=== PATIENT | female | born 1925 | race Caucasian/White ===

== ENCOUNTER 2016-09-19 04:42 | Inpatient (IN) | payer OTHER, MEDICAID ==
[~2016-09-19] VITALS: Ht 154.9 cm; Wt 44.0 kg
[2016-09-19 04:42] VITALS: BP_SYST 83
--- NOTE | 2016-09-19 04:44 | NUR ---
Pt came in ALS by from [facility]. Pt has been vomitting red blood times three. Facility staff stated she was more altered then normal. Pt was hypotensive at 70/40 per [place] on scene. Medics failed to establish IV and start fluids. Pt appeared lethargic and oriented times 0. Pt is guarding abdomen. Pt is also agitated. Will continue to monitor via library monitor and will continue to monitor. No other injuries or complaints mentioned/noted.
--- NOTE | 2016-09-19 04:45 | NUR ---
# 20 gauge angiocath placed to R forearm. Use of asceptic technique. Opsite placed over site. Blood return noted. Blood for lab drawn from site. Flushed with 10 cc of normal saline. No evidence of infiltration noted. Patient tolerated well.
[2016-09-19] MEDS ORDERED: NS 500 ML IV SCH (04:51)
[2016-09-19] MEDS ORDERED: PANTOPRAZOLE SODIUM 40 MG/VIAL (PROTONIX) IVP ONE (05:00)
[2016-09-19] MEDS ORDERED: ONDANSETRON HCL 4 MG/2 ML VIAL IVP ONE (05:00)
[2016-09-19] MEDS ORDERED: PANTOPRAZOLE SODIUM 40 MG/VIAL (PROTONIX) ONE (05:53)
--- NOTE | 2016-09-19 06:00 | NUR ---
# 16 FR salazar catheter with use of sterile technique. Immediate return of 300 ml gorge urine noted. Urine sample collected and sent to lab. Pt tolerated procedure well. Patient unable to toilet self.
--- NOTE | 2016-09-19 06:00 | NUR ---
Pt attempted to kick, bite, and punch staff when attempting EKG. Unable to capture a clear picture. Dr. Stuart made aware.
--- NOTE | 2016-09-19 06:00 | NUR ---
Stool sample sent to lab.
[2016-09-19 06:10] LABS: HEMATOCRIT 36.6 % (36-48); RED BLOOD CELL COUNT(AUTO) 3.61 MIL/uL (4.2-6.2); WHITE BLOOD COUNT (AUTO) 11.4 K/uL (4.8-10.8)
[2016-09-19 06:11] LABS: MEAN CORPUSCULAR HEMOGLOBIN 33 pg (27-31); MEAN CORPUSCULAR HGB CONC 33 % (32-36); MEAN CORPUSCULAR VOLUME 101 fL (79.0-98.0)
[2016-09-19 06:13] LABS: BASOPHILS % (AUTO) 0.2 % (0.0-2.0); EOSINOPHILS % (AUTO) 7.5 % (0.0-4.0); LYMPHOCYTES % (AUTO) 4.7 % (20.5-51.5); MONOCYTES % (AUTO) 8.2 % (1.7-9.3); NEUTROPHILS # (AUTO) 9.1 K/uL (1.8-7.7); NEUTROPHILS % (AUTO) 79.4 % (40.0-70.0); PLATELET COUNT (AUTO) 186 K/uL (130-430); RED CELL DISTRIBUTION WIDTH 13.1 % (9.0-15.0)
[2016-09-19 06:14] LABS: EOSINOPHILS # (AUTO) 0.9 K/uL (0.0-0.4); LYMPHOCYTES # (AUTO) 0.5 K/uL (1.0-5.5); MONOCYTES # (AUTO) 0.9 K/uL (0.0-1.0)
[2016-09-19 06:19] LABS: CALCIUM 8.1 mg/dL (8.4-11.0); CHLORIDE 114 mmol/L (98-107); CREATININE 1.32 mg/dL (0.55-1.30); GLUCOSE 134 mg/dL (70-99); POTASSIUM 5.4 mmol/L (3.5-5.1); PROTHROMBIN TIME 10.9 SECS (9.5-12.5); SODIUM SERUM 140 mmol/L (136-145); UREA NITROGEN, BLOOD 76 mg/dL (8-21)
[2016-09-19 06:25] LABS: ALANINE AMINOTRANSFERASE 25 U/L (12-78); ALBUMIN 2.4 g/dL (3.4-4.8); ASPARTATE AMINOTRANSFERASE 23 U/L (10-37); TOTAL BILIRUBIN 0.2 mg/dL (0.0-1.0)
[2016-09-19 06:33] LABS: ANION GAP < 3 (5-15)
[2016-09-19 06:56] LABS: BILIRUBIN,URINE NEGATIVE (NEGATIVE); CLARITY/URINE CLOUDY (CLEAR); COLOR,URINE YELLOW (YELLOW); GLUCOSE,URINE NEGATIVE (NEGATIVE); KETONES,URINE TRACE (NEGATIVE); LEUKOCYTE ESTERASE ,URINE 3+ (NEGATIVE); NITRITE, URINE POSITIVE (NEGATIVE); PROTEIN URINE TRACE (NEGATIVE)
[2016-09-19 07:00] LABS: BLOOD, URINE TRACE (NEGATIVE)
[2016-09-19] MEDS ORDERED: NACL 0.9% 1,000 ML IV ONE (07:02)
[2016-09-19 07:06] LABS: BACTERIA,URINE MODERATE /HPF (None Seen); MUCUS,URINE 1+ /LPF (None Seen); WBC,URINE 50-80 /HPF (0-3)
[2016-09-19] MEDS ORDERED: MEMA7CAP GT (07:07)
[2016-09-19] MEDS ORDERED: OMEP20CA10 GT (07:12)
[2016-09-19] MEDS ORDERED: PERM60CR4 TP (07:14)
[2016-09-19] MEDS ORDERED: CLOP75TA2 GT (07:14)
[2016-09-19] MEDS ORDERED: ONDANSETRON HCL 4 MG/2 ML VIAL IVP PRN (07:15)
[2016-09-19] MEDS ORDERED: cefTRIAXone 1 GM IVPB PREMIX 50 ML IV ONE (07:15)
[2016-09-19] MEDS ORDERED: TRIA80OI TP (07:19)
[2016-09-19] MEDS ORDERED: TYLL650 GT (07:20)
[2016-09-19] MEDS ORDERED: ARTT OP (07:21)
[2016-09-19] MEDS ORDERED: CAT.1 GT (07:22)
[2016-09-19] MEDS ORDERED: HYDR-2470 GT (07:23)
[2016-09-19] MEDS ORDERED: LACT10SO66 GT (07:25)
[2016-09-19] MEDS ORDERED: LEVO25TA7 GT (07:26)
[2016-09-19] MEDS ORDERED: TERB250T35 GT (07:26)
[2016-09-19] MEDS ORDERED: SSNOVOLOG SUBCUT (07:29)
--- NOTE | 2016-09-19 07:40 | NUR ---
Patient will be admitted to care of Dr. Ramirez. Admitted to Tele unit. Will go to room 113A. Belongings list completed. Summary report printed. Report given to Myesha by Dustin MORALES.
--- NOTE | 2016-09-19 07:40 | NUR ---
Transfer to 113a via ACLS protocol. Licensed nurse present. IV present no signs or symptoms of infiltration.
--- NOTE | 2016-09-19 07:45 | NUR ---
ADMISSION NOTE Received patient from ER via gurney. Patient admitted with diagnosis of GI Bleed. Patient is awake, alert, oriented X 1. Patient oriented to hospital room, call light, toileting, pain management and safety-teach back not done-pt refusing to open her eyes & pulling blanket over her hSide rails up x3, bed alarm on and room across from nursing staion for safety. Personal belongings checked and Belongings List documented. Call light within reach.
[2016-09-19 07:55] VITALS: BP_SYST 115
[2016-09-19] MEDS ORDERED: NS 500 ML IV ONE (08:00)
[2016-09-19] MEDS: PANTOPRAZOLE SODIUM 40 MG in NS 50 ML IV SCH ×4 (09:54→22:57)
[2016-09-19] MEDS: NACL 0.9% 1,000 ML IV SCH ×2 (09:55→18:51)
--- NOTE | 2016-09-19 10:00 | NUR ---
ROUNDS/MEDS Pt more awake now, still refused to open her eyes or mouth for assessment. Protonix drip & IVF both now infusing well to RFA at ordered rates with no s/s inflammation to site. Noted pt very feisty when repositioned in bed and she attempted to scratch this nurse. HOB elevated for aspiration precautions. Skin and safety precautions in place.
--- NOTE | 2016-09-19 11:16 | NUR ---
ROUNDS/MD Pt lying in bed with no s/s resp distress, no sign of pain. Noted pt itchy-Dr. Ramirez here and informed-he ordered Benadryl-will give to pt. Dr. Ramirez here, plan of care reviewed. All precautions remain in place.
--- NOTE | 2016-09-19 11:47 | NUR ---
Consult was called Rg: MARYANN Ellison spoke with Esthela From Dr Maite turk .
[2016-09-19 12:27] VITALS: BP_SYST 132
[2016-09-19] MEDS: DIPHENHYDRAMINE INJ 50 MG/ML VIAL IVP PRN ×2 (12:28→18:55)
[2016-09-19 13:40] LABS: HEMATOCRIT 32.9 % (36-48); HEMOGLOBIN 11.1 g/dL (12.0-16.0)
--- NOTE | 2016-09-19 14:00 | NUR ---
ROUNDS/PICTURES Pt given bed bath and clean gown and linen. Pictures of pt's rash taken. Pt repositioned with pillow support-pt kicked pillow under heels away-able to move her feet at will. All precautions remain in place.
--- NOTE | 2016-09-19 16:27 | NUR ---
ROUNDS Pt resting quietly in bed with no s/s resp distress, s/s pain or discomfort. Pt given warm blanket and repositioned for skin care and comfort. All precautions remain in place.
[2016-09-19 16:28] VITALS: BP_SYST 131
--- NOTE | 2016-09-19 18:56 | NUR ---
PT ITCHY Pt scratchinh constantly, given Benadryl as ordered.
--- NOTE | 2016-09-19 19:05 | NUR ---
CLOSING ROUNDS Pt resting quietly in bed with no s/s resp distress, still scratching her arms at times. Pt seen by for GI consult-he stated he will call pt's son Tristan with plan of care for tomorrow. IVF and Protonix drip infusing well to RFA at ordered rate with no s/s infiltration to site. Aspiration, skin and safety precautions remain in place.
[2016-09-19 20:00] VITALS: BP_SYST 120
--- NOTE | 2016-09-19 20:00 | NUR ---
Opening Note Patient is currently resting in bed. She is awake, however, she is confused. Bed is in low position and is visible from the nurses station. IV is on the RFA 20g running NS@100ml/hr and Protonix @10ml/hr. Cano catheter is to gravity draining clear yellow urine. G-tube is currently clamped patient is NPO. Going for colonoscopy tomorrow. Will obtain telephone consent from the son.
--- NOTE | 2016-09-19 21:40 | NUR ---
Consult called Reason for consultation: Left thumb growth Person who was notified: JESSIE Consulting Physician: : Aung Gomez MD Petroleum Refinery Operator Specialty Orthopedic Petroleum Refinery Operator
[2016-09-19] MEDS: CLOTRIMAZOLE/BETAMET DIPROP 15 GM TUBE TP SCH (21:46)
--- NOTE | 2016-09-19 22:00 | NUR ---
Rounds Patient is in stable condition. However, is very confused. Bed is in low position and is visible from the nurses station.
--- NOTE | 2016-09-20 | NUR ---
Rounds Patient is in stable condition. No signs of distress noted. Call light is within reach.
[2016-09-20 00:57] VITALS: BP_SYST 120
--- NOTE | 2016-09-20 02:00 | NUR ---
Rounds Patient is in stable condition. Call light is within reach.
[2016-09-20 02:12] LABS: HEMATOCRIT 30.2 % (36-48); HEMOGLOBIN 10.3 g/dL (12.0-16.0)
[2016-09-20 04:00] VITALS: BP_SYST 117
--- NOTE | 2016-09-20 04:00 | NUR ---
Rounds Patient is resting in bed. No signs of distress noted.
[2016-09-20] MEDS: PANTOPRAZOLE SODIUM 40 MG in NS 50 ML IV SCH ×3 (04:56→15:00)
[2016-09-20] MEDS: NACL 0.9% 1,000 ML IV SCH ×2 (04:56→10:24)
--- NOTE | 2016-09-20 06:30 | NUR ---
Closing Note Report given to the day shift RN. Patient is in stable condition. IV is on the RFA running NS@100ml/hr and Protonix drip @ 10ml/hr. Cano catheter is draining clear yellow urine. Going for colonoscopy today. Consent is in the chart.
--- NOTE | 2016-09-20 07:43 | NUR ---
Nutrition Update Luis Scale 13 noted. Pt admitted for GI bleed. Diet: NPO BMI: 18.4 kg/m2 RD to follow per nutrition care standards.
[2016-09-20] MEDS ORDERED: SIMETHICONE 40 MG/0.6 ML ML ONE (08:06)
[2016-09-20] MEDS ORDERED: MIDAZOLAM HCL 5 MG/5 ML VIAL ONE (08:06)
[2016-09-20] MEDS ORDERED: MEPERIDINE HCL/PF 100 MG/ML AMP ONE (08:06)
[2016-09-20 08:15] VITALS: BP_SYST 126
--- NOTE | 2016-09-20 08:20 | NUR ---
Routine Patient taken in stable condition to GI Lab for EGD.
[2016-09-20 08:38] LABS: BASOPHILS % (AUTO) 0.4 % (0.0-2.0); EOSINOPHILS % (AUTO) 13.9 % (0.0-4.0); HEMATOCRIT 27.4 % (36-48); HEMOGLOBIN 9.2 g/dL (12.0-16.0); LYMPHOCYTES # (AUTO) 0.6 K/uL (1.0-5.5); LYMPHOCYTES % (AUTO) 8.3 % (20.5-51.5); MEAN CORPUSCULAR HEMOGLOBIN 34 pg (27-31); MEAN CORPUSCULAR HGB CONC 34 % (32-36); MEAN CORPUSCULAR VOLUME 100 fL (79.0-98.0); MONOCYTES # (AUTO) 0.5 K/uL (0.0-1.0); MONOCYTES % (AUTO) 7.6 % (1.7-9.3); NEUTROPHILS # (AUTO) 4.9 K/uL (1.8-7.7); NEUTROPHILS % (AUTO) 69.8 % (40.0-70.0); PLATELET COUNT (AUTO) 145 K/uL (130-430); RED BLOOD CELL COUNT(AUTO) 2.74 MIL/uL (4.2-6.2); RED CELL DISTRIBUTION WIDTH 13.2 % (9.0-15.0)
[2016-09-20 09:13] LABS: ANION GAP 5 (5-15); CALCIUM 8.1 mg/dL (8.4-11.0); CHLORIDE 118 mmol/L (98-107); GLUCOSE 85 mg/dL (70-99); POTASSIUM 4.6 mmol/L (3.5-5.1); SODIUM SERUM 144 mmol/L (136-145); UREA NITROGEN, BLOOD 54 mg/dL (8-21)
[2016-09-20 09:15] LABS: PROTHROMBIN TIME 11.3 SECS (9.5-12.5)
--- NOTE | 2016-09-20 09:45 | NUR ---
Returned to unit from GI Lab. Stable.
--- NOTE | 2016-09-20 10:15 | NUR ---
Dr. Ramirez at bedside. Patient stable.
[2016-09-20] MEDS: CLOTRIMAZOLE/BETAMET DIPROP 15 GM TUBE TP SCH ×2 (10:24→21:06)
[2016-09-20 12:03] VITALS: BP_SYST 123
--- NOTE | 2016-09-20 12:05 | NUR ---
Routine Patient asleep. No acute distress noted at this time.
--- NOTE | 2016-09-20 13:01 | NUR ---
DISCHARGE PLANNING Faxed referral to [phone] for possible weekend discharge. CM made aware and will follow up. Addendum: 09/21/16 at 1255 by Aida Kirk DP Spoke with Pau at [facility] bed available for patient room 101A RN to report [phone] CM made aware. Pau requested to be notified when patient will be discharged. Transportation packet in nurses station.
--- NOTE | 2016-09-20 14:40 | NUR ---
Routine Patient resting in bed with eyes clothes; not asleep - moving head and arms. Patient stable.
--- NOTE | 2016-09-20 14:51 | NUR ---
LUIS SCALE EVALUATION: Patient evaluated for a low Luis score of 13. Patient was awake, alert, confused and received in a Prashant bed with an IsoFlex GABRIELLA mattress (low air-loss therapy initiated). Patient is unable to turn in bed independently. Skin is fair (-); All extremities have excoriations. Recommend reposition patient every 2 hours with pillow support, and off-load pressure areas with pillows for pressure re-distribution. Elevate, off-load and float bilateral heels with pillows. Use moisture barrier cream on buttocks and other moisture susceptible areas QID and as needed for soiling. Perform skin care and monitor skin integrity Q shift. Maintain patient on low air-loss therapy.
[2016-09-20 16:03] VITALS: BP_SYST 153
--- NOTE | 2016-09-20 16:30 | NUR ---
Routine Patient resting comfortably in bed. Patient stable at this time.
--- NOTE | 2016-09-20 18:40 | NUR ---
Routine Patient resting in bed with eyes closed. Patient stable throughout shift.
--- NOTE | 2016-09-20 20:15 | NUR ---
Initial note A/O x 1, no SOB, no chest pain, no grimacing. Skin warm to touch, rashes at chest, arms, and legs. IV at R FA. Clear lung sounds and active bowel sounds. GT in place, site clean. Continued Fibersource @ 50 ml/hr. Residual about 15 ml. Currently on contact isolation for MRSA-nares and C-diff. F/C in place, about 100 ml clear yellow urine in the collecting bag. Call light within reach, will continue to monitor patient.
[2016-09-20 20:30] VITALS: BP_SYST 135
--- NOTE | 2016-09-20 21:00 | NUR ---
Informed Dr. Ramirez regarding C-diff and MRSA-nares positive Dr. Ramirez stated he will see patient tomorrow (09/21/2016), no order given for C-diff but gave order for Bactroban both nares applied BID x 5 days.
--- NOTE | 2016-09-20 22:00 | NUR ---
Called and informed son (Tristan Oliver) regarding MRSA positive on nares
--- NOTE | 2016-09-20 22:10 | NUR ---
Rounds Resting in bed. No SOB, no chest pain, no grimacing. Continued Fibersource @ 50 ml/hr. Residual about 15 ml. Currently on contact isolation for MRSA-nares and C-diff. F/C in place. Bed at lowest position, bed alarm on, call light within reach, will continue to monitor patient.
[2016-09-21] VITALS: BP_SYST 142
--- NOTE | 2016-09-21 00:10 | NUR ---
Rounds Resting/sleeping in bed. No SOB, no chest pain, no grimacing. Continued Fibersource @ 50 ml/hr. Residual about 10ml. Flushed 50 ml water. Currently on contact isolation for MRSA-nares and C-diff. F/C in place. Bed at lowest position, bed alarm on, call light within reach, will continue to monitor patient.
--- NOTE | 2016-09-21 02:20 | NUR ---
Rounds Sleeping in bed. No SOB, no chest pain, no grimacing. Continued Fibersource @ 50 ml/hr. Currently on contact isolation for MRSA-nares and C-diff. F/C in place. Bed at lowest position, bed alarm on, call light within reach, will continue to monitor patient.
[2016-09-21] MEDS: DIPHENHYDRAMINE INJ 50 MG/ML VIAL IVP PRN (02:53)
--- NOTE | 2016-09-21 03:15 | NUR ---
IV RE-INSERTION Complaining of pain to IV site. Restarted on IV #22 at L FA. Successful after [] attempts. Resumed current IVF of [] and regulated @ [] per hour. Will observe for any signs of infiltration. Addendum: 09/21/16 at 0413 by Ash Royal RN IV RE-INSERTION Complaining of pain to IV site when flushing. Restarted on IV #22 at L FA. Successful after 2 attempts. IV Benadryl given for body itchiness. Will observe for any signs of infiltration. DC old IV from R FA, some redness at site, no s/s of infection. Patient tolerated whole procedure well.
[2016-09-21 04:00] VITALS: BP_SYST 143
--- NOTE | 2016-09-21 04:15 | NUR ---
Rounds Resting in bed. No SOB, no chest pain, no grimacing. No itchiness. Continued Fibersource @ 50 ml/hr. Currently on contact isolation for MRSA-nares and C-diff. F/C in place. Bed at lowest position, bed alarm on, call light within reach, will continue to monitor patient.
--- NOTE | 2016-09-21 06:05 | NUR ---
Rounds Resting in bed. No SOB, no chest pain, no grimacing. No itchiness. Continued Fibersource @ 50 ml/hr, flushed with 50 ml water. 15 ml residual noted. Currently on contact isolation for MRSA-nares and C-diff. F/C in place. Bed at lowest position, bed alarm on, call light within reach, will continue to monitor patient.
--- NOTE | 2016-09-21 07:00 | NUR ---
Closing note Awake, resting in bed. No SOB, no chest pain, no grimacing, no itchiness. Continued Fibersource @ 50 ml/hr. Currently on contact isolation for MRSA-nares and C-diff. F/C in place. Bed at lowest position, bed alarm on, call light within reach, will give report to incoming nurse for patient condition and follow up for DVT PPX.
--- NOTE | 2016-09-21 07:43 | NUR ---
PATIENT IS AWAKE, A/OX1, CONFUSED AND AT TIMES COMBATIVE. NPO AT THIS TIME. IV ON LEFT FA, #22, SL. ON CONTACT ISOLATION. CALL LIGHT IN PLACE, BED AT LOWEST POSITION, WILL CONTINUE TO MONITOR.
[2016-09-21 08:27] LABS: BASOPHILS % (AUTO) 0.4 % (0.0-2.0); EOSINOPHILS # (AUTO) 0.5 K/uL (0.0-0.4); EOSINOPHILS % (AUTO) 6.3 % (0.0-4.0); HEMATOCRIT 28.9 % (36-48); HEMOGLOBIN 9.5 g/dL (12.0-16.0); LYMPHOCYTES # (AUTO) 0.6 K/uL (1.0-5.5); LYMPHOCYTES % (AUTO) 7.1 % (20.5-51.5); MEAN CORPUSCULAR HEMOGLOBIN 33 pg (27-31); MEAN CORPUSCULAR HGB CONC 33 % (32-36); MEAN CORPUSCULAR VOLUME 99 fL (79.0-98.0); MONOCYTES # (AUTO) 0.7 K/uL (0.0-1.0); MONOCYTES % (AUTO) 8.2 % (1.7-9.3); NEUTROPHILS # (AUTO) 6.9 K/uL (1.8-7.7); PLATELET COUNT (AUTO) 154 K/uL (130-430); RED BLOOD CELL COUNT(AUTO) 2.91 MIL/uL (4.2-6.2); RED CELL DISTRIBUTION WIDTH 13.1 % (9.0-15.0); WHITE BLOOD COUNT (AUTO) 8.7 K/uL (4.8-10.8)
[2016-09-21] MEDS: PANTOPRAZOLE SODIUM 40 MG/VIAL (PROTONIX) IVP SCH ×2 (09:03→21:59)
[2016-09-21] MEDS: CLOTRIMAZOLE/BETAMET DIPROP 15 GM TUBE TP SCH ×2 (09:07→22:42)
[2016-09-21] MEDS: MUPIROCIN 2% TOPICAL OINTMENT 22 GM TP SCH ×2 (09:07→22:42)
--- NOTE | 2016-09-21 10:00 | NUR ---
PATIENT IS AT REST, TURNED AND REPOSITIONED FOR COMFORT. NO SIGNS OF DISTRESS NOTED.
[2016-09-21 12:00] VITALS: BP_SYST 127
--- NOTE | 2016-09-21 12:05 | NUR ---
PATIENT IS AT REST, TURNED AND REPOSITIONED FOR COMFORT.
--- NOTE | 2016-09-21 14:28 | NUR ---
DR. JOHNSON AND DR. LOMAX CAME AND ASSESSED PATIENT AND GAVE ORDERS.
--- NOTE | 2016-09-21 16:10 | NUR ---
PATIENT'S FAMILY MEMBERS CAME, AND SIGNED CONSENT FOR PROCEDURE, AFTER DR. LOMAX HAS SPOKEN TO THEM ON THE PHONE REGARDING THE PROCEDURE.
--- NOTE | 2016-09-21 18:15 | NUR ---
PATIENT IS RESTING, WITH EYES CLOSED. NO SIGNS OF DISTRESS NOTED.
[2016-09-21 18:22] VITALS: BP_SYST 131
[2016-09-21 19:55] VITALS: BP_SYST 143
--- NOTE | 2016-09-21 20:00 | NUR ---
NOTES; SEEN PT IN BED, EYES CLOSED. AROUSED TO TOUCH. NO ACUTE DISTRESS NOTED. VITAL SIGNS STABLE, AFEBRILE. SKIN RASHES NOTED ALL OVER BODY. WILL APPLY MEDICATED CREAM ORDERED. NO SCRATCHING NOTED. ABDOMEN SOFT NONDISTENDED WITH ACTIVE BOWEL SOUNDS. G-TUBE TO THE ABD WITH ORDERED FIBERSOURCE FEEDING INFUSING WELL AT ORDERED RATE. NO RESIDUAL NOTED. INCONTINENT OF URINE. TOTAL BED BATH GIVEN. DENISE CARE PROVIDED. NO FACIAL GRIMACING OF PAIN NOTED. REPOSITIONED FOR COMFORT. BED LOCKED AND IN LOW POSITION, SIDE RAILS UP X3, CALL LIGHT WITHIN REACH. HEAD OF BED ELEVATED TO PREVENT PT FROM ASPIRATING. WILL CONTINUE TO MONITOR.
--- NOTE | 2016-09-21 22:45 | NUR ---
NOTES; SCHEDULED MEDICATION ADMINISTERED.
[2016-09-22 00:41] VITALS: BP_SYST 138
--- NOTE | 2016-09-22 02:00 | NUR ---
NOTES; RESTING QUIETLY, EASILY AROUSED. PT IS TOLERATING G-TUBE FEEDING WELL. REPOSITIONED FOR COMFORT. HEAD OF BED ELEVATED TO PREVENT PT FROM ASPIRATING. SAFETY MEASURES IN PROGRESS.
--- NOTE | 2016-09-22 04:00 | NUR ---
NOTES; TOTAL BED BATH GIVEN, LINEN CHANGED. G-TUBE SITE CLEANSE WITH NS, PAT DRY. DRESSING APPLIED. REPOSITIONED FOR COMFORT. HEAD OF BED ELEVATED TO PREVENT PT FROM ASPIRATING. SAFETY MEASURES IN PROGRESS.
[2016-09-22 04:43] VITALS: BP_SYST 141
--- NOTE | 2016-09-22 08:00 | NUR ---
OPENING NOTE PATIENT IS LETHARGIC. DOES NOT OPEN EYES TO VERBAL OR LIGHT STIMULI, WITHDRAWS AND MOANS WITH NOXIOUS STIMULI. CALL FROM DR LABOY TO HAVE ITEMS AT BEDSIDE FOR BIOPSY OF LEFT THUMB.
[2016-09-22 08:26] LABS: BASOPHILS % (AUTO) 0.2 % (0.0-2.0); EOSINOPHILS # (AUTO) 0.3 K/uL (0.0-0.4); EOSINOPHILS % (AUTO) 3.2 % (0.0-4.0); HEMATOCRIT 28.3 % (36-48); HEMOGLOBIN 9.7 g/dL (12.0-16.0); LYMPHOCYTES # (AUTO) 0.5 K/uL (1.0-5.5); LYMPHOCYTES % (AUTO) 5.6 % (20.5-51.5); MEAN CORPUSCULAR HEMOGLOBIN 34 pg (27-31); MEAN CORPUSCULAR HGB CONC 34 % (32-36); MEAN CORPUSCULAR VOLUME 100 fL (79.0-98.0); MONOCYTES # (AUTO) 0.5 K/uL (0.0-1.0); MONOCYTES % (AUTO) 6.5 % (1.7-9.3); NEUTROPHILS # (AUTO) 6.8 K/uL (1.8-7.7); NEUTROPHILS % (AUTO) 84.5 % (40.0-70.0); PLATELET COUNT (AUTO) 159 K/uL (130-430); RED BLOOD CELL COUNT(AUTO) 2.84 MIL/uL (4.2-6.2); WHITE BLOOD COUNT (AUTO) 8.1 K/uL (4.8-10.8)
--- NOTE | 2016-09-22 09:00 | NUR ---
DR LABOY CALLED AGAIN TO ENSURE ITEMS WERE AT BEDSIDE, ASKED TO HAVE PTS FINGER SOAKED IN BETADINE AND WILL CALL BACK TO SEE IF IT WAS POSSIBLE
[2016-09-22] MEDS: PANTOPRAZOLE SODIUM 40 MG/VIAL (PROTONIX) IVP SCH ×2 (09:01→20:29)
[2016-09-22] MEDS: MUPIROCIN 2% TOPICAL OINTMENT 22 GM TP SCH ×2 (09:02→20:30)
[2016-09-22] MEDS: CLOTRIMAZOLE/BETAMET DIPROP 15 GM TUBE TP SCH ×2 (09:03→20:30)
--- NOTE | 2016-09-22 10:00 | NUR ---
DR NARDA LAO AGAIN ASKING TO HAVE EMLA AT BEDSIDE TO NUMB PATIENTS THUMB. ASKED THAT PTS THUMB BE SOAKED IN EMLA BEFORE HE ARRIVES.
--- NOTE | 2016-09-22 10:30 | NUR ---
DR LABOY CALLED AGAIN TO HAVE FORMALIN SPECIMEN CONTAINER AT BEDSIDE, SCALPEL, AND LARGE SCISSORS TO EXCISE THE GROWTH FROM LEFT THUMB
--- NOTE | 2016-09-22 11:30 | NUR ---
PROCEDURE DR LABOY PERFORMED BEDSIDE BIOPSY OF PATIENT'S LEFT THUMB, ORDERS FOR PATHOLOGY AND OTHER LABS GIVEN FOR SAMPLE.
[2016-09-22 12:52] VITALS: BP_SYST 128
[2016-09-22 12:53] VITALS: BP_SYST 138
--- NOTE | 2016-09-22 14:27 | NUR ---
KEVIN Ramirez ([phone]), s/w Karlene.
--- NOTE | 2016-09-22 14:49 | NUR ---
PT CLEANED OF INCONTINENCE, NEW FEEDING TUBE AND FEEDING BAG HUNG. PT SEEMS AGITATED IS NOT PULLING TUBES BUT SHE IS RESTLESS AND SCRATCHING HER FACE AND ARMS
[2016-09-22] MEDS: DIPHENHYDRAMINE INJ 50 MG/ML VIAL IVP PRN (15:25)
[2016-09-22] MEDS ORDERED: LIDOCAINE/PRILOCAINE 5 GM CREAM (EMLA) TP ONE (15:30)
--- NOTE | 2016-09-22 15:35 | NUR ---
PATIENT MEDICATED FOR ITCHING W 25MG BENADRYL IVP
--- NOTE | 2016-09-22 15:59 | NUR ---
PATIENT APPEARS MORE CALM. APPEARS TO HAVE LESS ITCHING
--- NOTE | 2016-09-22 16:10 | NUR ---
ID CONSULT: DR VARGAS Consult was called, kalyn luong, esbl, c-diff
[2016-09-22 17:25] VITALS: BP_SYST 136
--- NOTE | 2016-09-22 19:30 | NUR ---
INITIAL NOTES; -Pt is a/ox2, resting in bed. Vital signs 97.8, 20, 100, 156/108, V1qnr=16% r/a. No s/s any pain,sob,n&V, any acute distress noted. Iv sites of rt f/a patent, no s/s any infiltration noted. Abdomen soft & distended, bs present. Delta pedis wakes upon palp. Delta pedis present and no edema noted. Drsg cdi of left thumb. Unable to discuss poc due to aloc,no family is at bedside. Contact isolation. Fall precaution in place. All safety measures in place. Side rail x3,alarmed, bed low position. Call light /win reach. Continue to monitor pt. Addendum: 09/22/16 at 2243 by Yuko Kiran RN ADDITIONAL NOTES; FIBERSOURCE @ 50ML/HR VIA G-TUBE IN PLACE, PATENT, NO RESIDUAL NOTED.
--- NOTE | 2016-09-22 19:51 | NUR ---
PROVIDED PERINEAL -PT IS INCONT OF URINE -PROVIDED PERINEAL CARE AND CLEANED PT. NOW, PT IS CLEANED AND DRY.
--- NOTE | 2016-09-22 22:06 | NUR ---
ROUNDS; Pt is resting in bed. No s/s any pain,sob,n&V, any acute distress noted. Keep HOB greater than 30 degree entire time. Fibersource via G-tube @ 50m/hr. Repositioned and turned pt and q 2 hrs prn. Fall precaution in place. All safety measures in place. Side rail x3,alarmed, bed low position. Call light /win reach. Continue to monitor pt.
--- NOTE | 2016-09-23 00:16 | NUR ---
ROUNDS; Pt is resting in bed. Vital signs stable. No s/s any pain,sob,n&V, any acute distress noted. Keep HOB greater than 30 degree entire time. Fibersource via G-tube @ 50m/hr. Repositioned and turned pt and q 2 hrs prn. Fall precaution in place. All safety measures in place. Side rail x3,alarmed, bed low position. Call light /win reach. Continue to monitor pt.
[2016-09-23 00:22] VITALS: BP_SYST 157
--- NOTE | 2016-09-23 03:51 | NUR ---
ROUNDS;INCONTINENT OF URINE -Provided perineal care and cleaned pt, now, pt is cleaned and dry. No s/s any pain,sob,n&V, any acute distress noted. Keep HOB greater than 30 degree entire time. Fibersource via G-tube @ 50m/hr. Repositioned and turned pt and q 2 hrs prn. Fall precaution in place. All safety measures in place. Side rail x3,alarmed, bed low position. Call light /win reach. Continue to monitor pt.
[2016-09-23 04:46] VITALS: BP_SYST 136
--- NOTE | 2016-09-23 05:47 | NUR ---
ROUNDS; -Pt is resting. No s/s any pain,sob,n&V, any acute distress noted. Keep HOB greater than 30 degree entire time. Fibersource via G-tube @ 50m/hr. Fall precaution in place. All safety measures in place. Side rail x3,alarmed, bed low position. Call light /win reach. Continue to monitor pt.
--- NOTE | 2016-09-23 06:45 | NUR ---
CLOSING NOTES; -Pt is resting in bed. No s/s any pain,sob,n&V, any acute distress noted. Fibersource @ 50ml/hr. Keep HOB greater than 30 degree entire shift. Iv sites of rt f/a patent, no s/s any infiltration noted. Fall precaution in place. All safety measures in place. Side rail x3,alarmed, bed low position. Call light /win reach. Will endorse to oncoming nurse to continue care.
[2016-09-23 08:00] VITALS: BP_SYST 107
--- NOTE | 2016-09-23 08:00 | NUR ---
OPENING NOTE CALL FROM DR LOMAX ASKING TO HAVE BANDAGE REMOVED FROM THUMB AND PHOTOS PLACED IN CHART. MD STATES HE WILL BE IN LATER TO SEE HER. PATIENT IS SLEEPY, REFUSING TO OPEN EYES AND REFUSING TO MOVE LIMBS TO ALLOW FOR VITALS VITALS OBTAINED HOWEVER. PER LAB PATIENT LEFT THUMB HAD MANY MITES AND EGGS. PT HAS LIGHT PINK RASH ON MOST OF BODY AND IS OFTEN SEEN RUBBING HER SKIN OR SCRATCHING HER SCALP.
[2016-09-23] MEDS: MUPIROCIN 2% TOPICAL OINTMENT 22 GM TP SCH ×2 (09:50→21:15)
[2016-09-23] MEDS: CLOTRIMAZOLE/BETAMET DIPROP 15 GM TUBE TP SCH ×2 (09:50→21:16)
[2016-09-23] MEDS: PANTOPRAZOLE SODIUM 40 MG/VIAL (PROTONIX) IVP SCH ×2 (09:54→21:52)
--- NOTE | 2016-09-23 10:37 | NUR ---
DR CHRISTIE IN TO SEE PATIENT.
[2016-09-23] MEDS ORDERED: PERMETHRIN 60 GM TOPICAL CREAM (ELIMITE) TP ONE (10:45)
[2016-09-23] MEDS ORDERED: IVERMECTIN 3 MG TABLET PO ONE (11:00)
[2016-09-23 12:00] VITALS: BP_SYST 140
[2016-09-23] MEDS: cefTRIAXone 1 GM in D5W 50 ML IV SCH (12:29)
--- NOTE | 2016-09-23 12:30 | NUR ---
PT IV NOTED TO BE OCCLUDED. PT REMAINS LETHARGIC, CONFUSED AND SLIGHTLY AGITATED.
[2016-09-23] MEDS: metroNIDAZOLE 500 MG TABLET PO SCH ×2 (14:58→21:15)
[2016-09-23 16:00] VITALS: BP_SYST 134
--- NOTE | 2016-09-23 16:47 | NUR ---
PATIENT ASSESSED. STILL APPEARS MILDLY AGITATED ALTHOUGH SHE HAS NOT SPIT, HIT OR YELLED. PATIENT IS REFUSING A NEW IV START BY SWATTING STAFF HANDS AWAY. WILL PAGE MD FOR POSSIBLE PO ANTIBIOTIC ORDERS.
--- NOTE | 2016-09-23 19:15 | NUR ---
change of shift.pt's initial assessment.pt.presents asphasia;expressive,non verbal will moan,isolation, g-tube present;will attend 2 pt assigned w/constantine;construction management assistant.call light w/in pt's reach.
--- NOTE | 2016-09-23 19:53 | NUR ---
Rounds Received patient lying in bed resting quietly, no s/s of any pain, no acute distress noted. IV site checked intact and patent. call light within reach, bed alarm on. will monitor patient.
[2016-09-23 20:00] VITALS: BP_SYST 140
--- NOTE | 2016-09-23 20:00 | NUR ---
pt.assessed.v/s assessed:values w/in normal limits.pt.presents slight agitation;affect. g-tube assessed;patent,g-tube feed administering.pt.does not articulate speech:pt.will moan.isolation:contact;scabies.ppe:protective gear utilized per nsg.call light w/in pt's reach.
[2016-09-23] MEDS: LACTOBACILLUS RHAMNOSUS GG 1 CAP CAPSULE PO SCH (21:15)
--- NOTE | 2016-09-23 22:00 | NUR ---
pt.assessed.pt.repositioned.no distress/discomfort manifested.g-tube feed infusing. call light w/in pt's reach.
--- NOTE | 2016-09-23 22:34 | NUR ---
PATIENT RESTING: Patient resting quietly. No acute distress noted. call light within reach.
[2016-09-24] VITALS (7 sets, daily range): BP systolic 102–142
--- NOTE | 2016-09-24 | NUR ---
pt.assessed.v/s assessed:values w/in normal limits.pt.repositioned.no distress/discomfort manifested. call light placed w/in pt's reach.
--- NOTE | 2016-09-24 00:20 | NUR ---
PATIENT RESTING: Patient resting quietly. No acute distress noted. call light within reach, bed alarm on.
--- NOTE | 2016-09-24 02:00 | NUR ---
pt.assessed.pt.repositioned.pt.presents quiescent affect;calm,asleep.call light placed w/in pt's reach. no distress/discomfort manifested.
--- NOTE | 2016-09-24 03:15 | NUR ---
PATIENT RESTING: Patient awake. No acute distress noted. call light within reach, bed alarm on.
--- NOTE | 2016-09-24 04:00 | NUR ---
pt.assessed.pt.repositioned.v/s assessed.values w/in normal limits.pt.presents quiescent affect;calm,asleep. no distress/discomfort manifested.call light w/in pt's reach.
--- NOTE | 2016-09-24 04:54 | NUR ---
PATIENT RESTING: Patient resting quietly. No acute distress noted. call light within reach, bed alarm on.
--- NOTE | 2016-09-24 05:00 | NUR ---
GT site care GT site care, changed dressing done.
[2016-09-24] MEDS: metroNIDAZOLE 500 MG TABLET PO SCH ×3 (05:23→22:17)
--- NOTE | 2016-09-24 06:00 | NUR ---
pt.assessed.pt.presents quiescent affect;calm,asleep.pt.repositioned.daniele light w/in pt's reach.
--- NOTE | 2016-09-24 06:32 | NUR ---
Closing notes Patient slept most of the night, no other changes noted on patient current condition.
[2016-09-24 07:17] LABS: BASOPHILS % (AUTO) 0.3 % (0.0-2.0); EOSINOPHILS # (AUTO) 0.8 K/uL (0.0-0.4); HEMATOCRIT 29.8 % (36-48); HEMOGLOBIN 9.9 g/dL (12.0-16.0); LYMPHOCYTES # (AUTO) 0.5 K/uL (1.0-5.5); MEAN CORPUSCULAR HEMOGLOBIN 33 pg (27-31); MEAN CORPUSCULAR HGB CONC 33 % (32-36); MEAN CORPUSCULAR VOLUME 99 fL (79.0-98.0); MONOCYTES # (AUTO) 0.6 K/uL (0.0-1.0); MONOCYTES % (AUTO) 8.6 % (1.7-9.3); NEUTROPHILS # (AUTO) 4.6 K/uL (1.8-7.7); NEUTROPHILS % (AUTO) 70.1 % (40.0-70.0); PLATELET COUNT (AUTO) 184 K/uL (130-430); RED CELL DISTRIBUTION WIDTH 12.8 % (9.0-15.0); WHITE BLOOD COUNT (AUTO) 6.5 K/uL (4.8-10.8)
--- NOTE | 2016-09-24 07:35 | NUR ---
INITIAL NOTE RECEIVED PATIENT FROM BLADE FILER NURSE, PATIENT IS CURRENTLY RESTING IN BED, NO SIGNS OF DISTRESS OR DISCOMFORT, PATIENT IS ALERT AND ORIENTED X 1, ASSESSMENT COMPLETE, PATIENT HAS IV ACCESS ON RIGHT FOREARM CURRENTLY SALINE LOCK, NO SIGNS OF REDNESS NOTED, FLUSHES WELL, PATIENT HAS G-TUBE, SITE IS CLEAN,DRESSING IS DRY AND INTACT, 0 ML OF RESIDUAL, PATIENT'S LEFT THUMB IS CURRENTLY WRAPPED, HEELS ARE FLOATED, HOB ELEVATED, CALL SMITH NEXT TO PATIENT'S HAND, BED IN LOWEST POSITION, THREE SIDE RAILS UP, BED ALARM ON, FALL, ASPIRATION, CONTACT PRECAUTIONS IN PLACE, WILL CONTINUE TO MONITOR PATIENT.
[2016-09-24 07:46] LABS: ANION GAP 3 (5-15); CHLORIDE 110 mmol/L (98-107); CREATININE 1.16 mg/dL (0.55-1.30); GLUCOSE 157 mg/dL (70-99); POTASSIUM 4.3 mmol/L (3.5-5.1); SODIUM SERUM 144 mmol/L (136-145); UREA NITROGEN, BLOOD 46 mg/dL (8-21)
--- NOTE | 2016-09-24 09:35 | NUR ---
MEDICATIONS PATIENT WAS GIVEN MORNING MEDICATIONS, PATIENT TOLERATED WELL, 0ML RESIDUAL FROM FEEDING TUBE, NO OTHER NEEDS AT THIS TIME, WILL CONTINUE TO MONITOR PATIENT, FALL AND ASPIRATION PRECAUTIONS IN PLACE.
[2016-09-24] MEDS: MUPIROCIN 2% TOPICAL OINTMENT 22 GM TP SCH ×2 (09:37→22:16)
[2016-09-24] MEDS: PANTOPRAZOLE SODIUM 40 MG/VIAL (PROTONIX) IVP SCH ×2 (09:37→22:16)
[2016-09-24] MEDS: CLOTRIMAZOLE/BETAMET DIPROP 15 GM TUBE TP SCH ×2 (09:38→22:16)
[2016-09-24] MEDS: LACTOBACILLUS RHAMNOSUS GG 1 CAP CAPSULE PO SCH ×2 (09:38→22:17)
--- NOTE | 2016-09-24 10:59 | NUR ---
RN ROUNDS PATIENT IS CURRENTLY RESTING IN BED WITH EYES CLOSED, NO SIGNS OF DISTRESS, BREATHING IS EVEN AND UNLABORED, CALL SMITH LEFT BY PATIENT'S HAND, BED IN LOWEST POSITION, BED ALARM ON, THREE SIDE RAILS UP, HOB ELEVATED, FALL AND ASPIRATION PRECAUTIONS IN PLACE, WILL CONTINUE TO MONITOR.
[2016-09-24] MEDS: cefTRIAXone 1 GM in D5W 50 ML IV SCH (11:34)
--- NOTE | 2016-09-24 12:45 | NUR ---
RN ROUNDS PATIENT IS STABLE, NO SIGNS OF DISTRESS OR DISCOMFORT, NO OTHER NEEDS AT THIS TIME, WILL CONTINUE TO MONITOR PATIENT. FALL PRECAUTIONS IN PLACE.
--- NOTE | 2016-09-24 14:43 | NUR ---
RN ROUNDS PATIENT IS CURRENTLY RESTING IN BED, NO SIGNS OF DISTRESS, G-TUBE FEEDING BAG CHANGED, PATIENT TOLERATING WELL, 0ML OF RESIDUAL, NO OTHER NEEDS AT THIS TIME, HOB ELEVATED, FALL AND ASPIRATION, CONTACT PRECAUTIONS IN PLACE, WILL CONTINUE TO MONITOR
--- NOTE | 2016-09-24 16:19 | NUR ---
RN ROUNDS patient is currently resting in bed, no signs of distress, patient's son Mr. Hudson is here, updated son on patient's plan of care. will continue to monitor patient, fall, aspiration and contact precautions in place.
--- NOTE | 2016-09-24 16:37 | NUR ---
Notified Dr. Ramirez that Dr. Moreno wants to do another biopsy of patient's finger tomorrow in or, Dr. Ramirez gave order to hold discharge.
--- NOTE | 2016-09-24 18:37 | NUR ---
CLOSING NOTE PATIENT IS CURRENTLY RESTING IN BED, NO SIGN OF DISTRESS NOTED, ALL NEEDS MET, WILL ENDORSE PATIENT TO MEMBER OF THE LEGISLATIVE COUNCIL NURSE, WILL LET MEMBER OF THE LEGISLATIVE COUNCIL NURSE THAT DR. BOWERS IS COMING TO PUT IN ORDER FOR PATIENT TO HAVE BIOPSY TOMORROW IN OR PER ENGINEERING TECH, BED LEFT IN LOWEST POSITION, HOB ELEVATED, THREE SIDE RAILS UP, FALL, ASPIRATION, CONTACT PRECAUTIONS IN PLACE.
--- NOTE | 2016-09-24 20:40 | NUR ---
Report given to ANDREW Coto for continuity of care.
--- NOTE | 2016-09-24 20:45 | NUR ---
Rounds Pt is awake and resting comfortably in bed. Pt is oriented to her name only and Italian speaking. No acute distress noted and no c/o pain or discomfort. Lt thumb dressing is dry and intact. GT Feeding of FiberSource HN is infusing well at 50ml/hr and residual is 0ml. HOB is up 45 degrees to prevent aspiration. Skin is warm and dry to touch. No signs or symptoms of hypoglycemia or hyperglycemia noted. Saline lock is patent in RFA without any signs of infiltration. Fall and safety precautions are in place. Call light is with pt and bed alarm is on. Bed is in the lowest and locked positions. Pt's room is across from the Nurses' Station and with good visibility. Will continue to monitor pt.
--- NOTE | 2016-09-24 22:00 | NUR ---
Rounds Pt is resting quietly in bed. GTF is infusing well.
--- NOTE | 2016-09-25 | NUR ---
G Tube Feeding Stopped Pt is having surgery on Lt Thumb today and G Tube feeding stopped per MD's order. G tube was flushed with 50ml water and then clamped.
--- NOTE | 2016-09-25 00:40 | NUR ---
IV Restart Saline Lock in RFA noted to be out. The Angiocath was seen fully out and intact. New Saline Lock was inserted in RH Hand with Angiocath 24G. Pt tolerated IV restart well.
--- NOTE | 2016-09-25 02:00 | NUR ---
Rounds Pt is sleeping comfortably in bed.
--- NOTE | 2016-09-25 04:00 | NUR ---
Rounds Pt is resting quietly in bed.
[2016-09-25 04:16] VITALS: BP_SYST 145
--- NOTE | 2016-09-25 06:30 | NUR ---
Closing Note Pt is awake and resting comfortably in bed. All pt's needs were attended to. No fall or injury noted this shift. Will endorse to day shift nurse.
[2016-09-25] MEDS: metroNIDAZOLE 500 MG TABLET PO SCH ×3 (06:48→22:17)
--- NOTE | 2016-09-25 07:10 | NUR ---
Handoff from noc nurse. Patient has IV out at this time. Will replace IV.
[2016-09-25 08:26] VITALS: BP_SYST 130
--- NOTE | 2016-09-25 08:26 | NUR ---
IV replaced. Patient movement frequently during insertion. Student assist to hold patient. 22g in left leg site obtained.
[2016-09-25] MEDS: LACTOBACILLUS RHAMNOSUS GG 1 CAP CAPSULE PO SCH ×2 (09:00→22:17)
--- NOTE | 2016-09-25 09:00 | NUR ---
Patient removed IV dressing. Education not to remove site dressing. Site dressing replaced.
[2016-09-25] MEDS: MUPIROCIN 2% TOPICAL OINTMENT 22 GM TP SCH ×2 (10:29→22:17)
[2016-09-25] MEDS: PANTOPRAZOLE SODIUM 40 MG/VIAL (PROTONIX) IVP SCH ×2 (10:29→21:46)
[2016-09-25] MEDS: cefTRIAXone 1 GM in D5W 50 ML IV SCH (10:29)
--- NOTE | 2016-09-25 10:29 | NUR ---
Rounds for medication pass at this time.
[2016-09-25] MEDS: CLOTRIMAZOLE/BETAMET DIPROP 15 GM TUBE TP SCH ×2 (10:30→22:17)
--- NOTE | 2016-09-25 11:10 | NUR ---
AUTHOR'S AGENT final bed bath with CHG and gonzalez care. Patient had large bowel movement.
[2016-09-25] MEDS ORDERED: SEVOFLURANE 15 MIN GAS INH ONE (12:45)
[2016-09-25] MEDS ORDERED: MIDAZOLAM HCL 5 MG/5 ML VIAL IVP ONE (12:45)
--- NOTE | 2016-09-25 12:45 | NUR ---
Handoff report with OR nurse via telephone. Noted history of infections and conveyed IV on leg site as patient combative.
--- NOTE | 2016-09-25 13:07 | NUR ---
1200 V/S DID NOT TAKE. PT IS IN OR. ANDREW GRAHAM IS AWARE.
--- NOTE | 2016-09-25 15:05 | NUR ---
Patient return from operation in stable condition. Doctor rounds to restart feeding order given.
--- NOTE | 2016-09-25 15:23 | NUR ---
DISCHARGE PLANNING Called and spoke with Delmy at [facility]. Faxed current EMR. Delmy stated facility currently has no ISO bed available for patient discharge. GINA Zhong made aware.
[2016-09-25 16:00] VITALS: BP_SYST 130
--- NOTE | 2016-09-25 17:00 | NUR ---
Patient stable post operative course. Patient needs met. CUTTING TABLE OPERATOR assisting patient positioning. Vital signs stable.
[2016-09-25 19:30] VITALS: BP_SYST 112
--- NOTE | 2016-09-25 19:45 | NUR ---
Handoff report for noc nurse. Patient rounds.
--- NOTE | 2016-09-25 19:46 | NUR ---
notes received the pt from the day nurse.pt a/a/ox1g tube intact pt tolerating the feeding at 50cc/hr.iv to rt hand and rt leg intact.pt does not speak Maltese.bed alarm is production team member light within reach.continue to monitor.
--- NOTE | 2016-09-25 22:13 | NUR ---
notes pt incontinent of urine and stool ,pt pulled out her iv in her foot.and removed her gown.pt cleaned linen changed.continue to monitor.
--- NOTE | 2016-09-25 23:16 | NUR ---
notes g tube residual is 15cc h2o 50cc flush given continue to monitor.
[2016-09-25 23:47] VITALS: BP_SYST 132; BP_SYST 156
--- NOTE | 2016-09-26 01:16 | NUR ---
notes repositioned with pillow support.bed alarm on.continue to monitor.
--- NOTE | 2016-09-26 03:18 | NUR ---
notes awaken and repositioned with pillow support.call light within reach.continue to monitor,.
[2016-09-26 04:22] VITALS: BP_SYST 133
--- NOTE | 2016-09-26 05:20 | NUR ---
notes pt sleeping,no distress noted.tolerating the g tube feeding well .g tube residual is 10.h20 50cc.flush given.continue to monitor.
[2016-09-26] MEDS: metroNIDAZOLE 500 MG TABLET PO SCH ×3 (05:59→21:46)
--- NOTE | 2016-09-26 06:40 | NUR ---
NOTES PT AWAKE PULLING OFF BLANKET AND GOWN.BED ALARM IS ON.WILL ENDORSE THE CARE OF THE PT TO THE DAY NURSE.
--- NOTE | 2016-09-26 07:56 | NUR ---
INITIAL NOTE Received pt in bed, no s/s of distress or sob noted, pt has no facial grimacing noted for pain, pt in stable condition, pt aaox1, confused, provided pt with reality orientation. IV catheter patent, no signs of infection or infiltration noted. Bed at lowest position, call light within reach, will continue to monitor pt for any changes. Fall precautions in place, isolation precautions in place. aspiration precautions in place. Pt has a g tube, patent, flushes, placement verified, dressing clean and dry, tolerating feedings as ordered. Air mattress in place.
[2016-09-26 08:00] VITALS: BP_SYST 128
[2016-09-26] MEDS: LACTOBACILLUS RHAMNOSUS GG 1 CAP CAPSULE PO SCH ×2 (08:51→21:46)
[2016-09-26] MEDS: PANTOPRAZOLE SODIUM 40 MG/VIAL (PROTONIX) IVP SCH ×2 (08:51→21:45)
[2016-09-26] MEDS: CLOTRIMAZOLE/BETAMET DIPROP 15 GM TUBE TP SCH ×2 (08:52→21:47)
[2016-09-26] MEDS: MUPIROCIN 2% TOPICAL OINTMENT 22 GM TP SCH ×2 (08:52→21:46)
--- NOTE | 2016-09-26 09:47 | NUR ---
DISCHARGE PLANNING Called and spoke with Delmy in admitting at [facility] facility still has no ISO bed available for patient discharge. Delmy estimated ISO bed availability on Fri or Sat. DCP will continue to follow up.
--- NOTE | 2016-09-26 10:26 | NUR ---
Rounds Pt in bed, no s/s of distress or sob noted, pt has no facial grimacing noted for pain, pt in stable condition, will continue to monitor pt for any changes.
[2016-09-26] MEDS: cefTRIAXone 1 GM in D5W 50 ML IV SCH (10:32)
[2016-09-26 12:44] VITALS: BP_SYST 120
--- NOTE | 2016-09-26 14:00 | NUR ---
LUIS RE-EVALUATION: Patient re-evaluated for a low Luis score of 12. Patient was awake, alert, confused and received in a Prashant bed with an IsoFlex GABRIELLA mattress with low air-loss therapy. Patient is unable to turn in bed independently. Skin is fair (-); All extremities have excoriations; Buttocks have redness from IAD. Recommend reposition patient every 2 hours with pillow support, and off-load pressure areas with pillows for pressure re-distribution. Elevate, off-load and float bilateral heels with pillows. Use moisture barrier cream on buttocks and other moisture susceptible areas QID and as needed for soiling. Perform skin care and monitor skin integrity Q shift. Maintain patient on low air-loss therapy.
--- NOTE | 2016-09-26 15:04 | NUR ---
Nutrition F/U Admitting Diagnosis GI bleed Reviewed Pertinent Medical/Surgical Hx Primary RN Medical Record Medical History Comment: Alzheimer's dementia, dysphagia, s/p GT insertion per MD notes Subjective Information Pt seen resting in bed at time of RD visit. Pt is confused/disoriented and unable to engage in RD verbal interview. TF seen infusing as per MD orders; 228 ml infused at time of RD visit, providing 274 kcal. Per RN, pt has been tolerating TF well, no residuals. She also reported pt's pending D/C to [facility]. Per EMR, pt tested positive for C. diff and scabies. TF Intakes: 600 ml 09/26/16. Residuals: 0 ml 09/26/16. Last BM x4 09/26/16. I/O: 700/0 (+700 ml) per 12 hours. Current TF regimen is appropriate at this time. Pt is not appropriate for nutrition education. Current Diet Order/Nutrition Support Fibersource HN at 50 ml/hr, Free Water Flush: 50 ml per GT q6h x1 day Patient/Significant Other Unable To Verbalize Education Provided Not Indicated Pertinent Medications Reviewed Pertinent Labs Reviewed Height (Feet) 5 feet Height (Inches) 1.00 inches Weight (Pounds) 97 pounds (admission) BEDSCALE WT: 102 lb, 46 kg (09/26/16) -- interpret w/ caution; pt had multiple linens on bed Weight (Calculated Kilograms) 43.655475 kilograms Patient Weight 43.998 kg Body Mass Index 18.33 kg/m2 [place]/Adjusted Body Weight IBW: 105 lb, 48 kg Recent Weight Change Unknown Weight Status Underweight Difficulty With: Swallowing Chewing Food Allergies Unknown Usual Diet At Home Unknown Skin Integrity Comment: Luis scale: 13; per Clip Baker note 09/20/16: skin is fair (-); all extremities have excoriation Estimated Energy Expenditure (kcals/day) 9213-0859 kcal/day (25-30 kcal/kg CBW for geriatric maintenance) Estimated Protein Required (g/day) 44-53 gm/day (1-1.2 gm/kg CBW for geriatric maintenance) Estimated Fluid Required (l/day) 1.3-1.5 L/day (30-35 ml/kg CBW for geriatric maintenance) Problem/Etiology/Signs/Symptoms Inadequate nutritional intakes related to geriatric maintenance as evidenced by no currently infusing nutrition support. *resolved Expected Outcomes/Goals - Monitor tolerance to EN w/ goal of pt meeting at least 75% of estimated nutritional needs, labs trending WNL, normal GI function, and skin integrity/wt maintenance Dietitian Recommendations * Recommend continuing Fibersource HN at 50 ml/hr, Free Water Flush: 50 ml per GT q6h per MD Provides: 1440 kcal/day, 65 gm protein/day, and 972 ml free water/day Meets: 109% of upper end of estimated caloric needs and 123% of upper end of estimated protein needs Follow Up High Risk: F/U in 2-3 days Addendum: 09/26/16 at [address] CORRECTION: Follow Up Moderate Risk: F/U 3-5 days
[2016-09-26 16:26] VITALS: BP_SYST 137
--- NOTE | 2016-09-26 18:23 | NUR ---
Closing Note Pt in bed, no s/s of distress or sob noted, pt has no facial grimacing noted for pain, pt in stable condition, pt aaox1, confused, provided pt with reality orientation. IV catheter patent, no signs of infection or infiltration noted. Bed at lowest position, call light within reach, will endorse care of pt to incoming nurse. Fall precautions in place, isolation precautions in place. aspiration precautions in place. Pt has a g tube, patent, tolerating feedings as ordered. Air mattress in place.
[2016-09-26 20:00] VITALS: BP_SYST 151
--- NOTE | 2016-09-26 20:00 | NUR ---
Initial note A/O x 1, confused, no SOB, no chest pain, no grimacing. Skin warm to touch, some rashes noted on chest and body. IV at R hand, patent, free of infection or infiltration. Clear lung sounds and active bowel sounds. No edema noted. Continued GTF, Fibersource at 50 ml/hr, 20 ml residual noted. GT site clean. Contact isolation for MRSA-nares and C-Diff. Call light within reach, bed at lowest, side rails up, bed alarm on, will continue to monitor patient.
--- NOTE | 2016-09-26 22:00 | NUR ---
Rounds and IV start A/O x 1, confused, no SOB, no chest pain, no grimacing. Patient pulled out IV, no hematoma or infection at old IV site (R hand). Started a new IV at L hand #22, with good blood return. Skin warm to touch. Continued GTF, Fibersource at 50 ml/hr. Contact isolation for MRSA-nares and C-Diff. Call light within reach, bed at lowest, side rails up, bed alarm on, will continue to monitor patient.
[2016-09-27] VITALS: BP_SYST 101; BP_SYST 135
--- NOTE | 2016-09-27 | NUR ---
Rounds A/O x 1, confused, no SOB, no chest pain, no grimacing. IV at L hand. Continued GTF, Fibersource at 50 ml/hr. HOB > 45. Contact isolation for MRSA-nares and C-Diff. Call light within reach, bed at lowest, side rails up, bed alarm on, will continue to monitor patient.
--- NOTE | 2016-09-27 01:30 | NUR ---
Hands off report A/O x 1, confused, no SOB, no chest pain, no grimacing. IV at L hand. Continued GTF, Fibersource at 50 ml/hr. Contact isolation for MRSA-nares and C-Diff. Call light within reach, bed at lowest, side rails up, bed alarm on, report given to Magy. Addendum: 09/27/16 at 0141 by Ash Royal RN Informed Magy to pass massage to AM shift for medication route change (PO to GT)
--- NOTE | 2016-09-27 01:35 | NUR ---
NOTE ON CARE TRANSFER Patient in bed alert, confused and restless. Patient on G-tube Fibersource running at 50mL/hr and on contact isolation for MRSA/nares and C-diff. Report received from Ash MORALES.
--- NOTE | 2016-09-27 03:22 | NUR ---
NOTE Patient in bed napping. No S/S of distress or pain noted. Fall precautions in place.
[2016-09-27 04:00] VITALS: BP_SYST 137
[2016-09-27] MEDS: metroNIDAZOLE 500 MG TABLET PO SCH ×3 (05:58→21:48)
--- NOTE | 2016-09-27 07:36 | NUR ---
CLOSING NOTE Patient in bed resting. She is still restless and very confused, but appears more tired. No S/S of distress noted, breathing regular and unlabored. No S/S of pain. Fall precautions in place. The nurse hung new feeding bag of Fibersource to run at 50cc/hr. No residual noted at 6am. The patient unwrapped her IV line and was trying to pull it out. The nurse wrapped the site again. There is a discharge planning to [facility] in Isolation room. Patient's needs met throughout the shift. Report given to Amy MORALES.
[2016-09-27 08:00] VITALS: BP_SYST 136
--- NOTE | 2016-09-27 08:00 | NUR ---
NOTE PT DROWSY AND RESTING IN BED. PT'S LEFT HAND IV SITE INTACT AND PATENT AT THIS TIME WRAPPED WITH KERLIX WRAP PT TENDS TO PULL OUT HER IV. NO SOB/RESP DISTRESS OR PAIN/DISCOMFORT NOTED. PT IS RESTING IN BED AT THIS TIME. GT FEEDINGS INFUSING WELL. PT WILL BE MAINTAINED WITH SAFETY AND ISOLATION PRECAUTIONS THIS SHIFT. CALL LIGHT WITHIN REACH. PT IS NEXT TO NURSES' STATION FOR CLOSE OBSERVATION.
[2016-09-27] MEDS: MUPIROCIN 2% TOPICAL OINTMENT 22 GM TP SCH ×2 (09:19→21:52)
[2016-09-27] MEDS: LACTOBACILLUS RHAMNOSUS GG 1 CAP CAPSULE PO SCH (09:19)
[2016-09-27] MEDS: PANTOPRAZOLE SODIUM 40 MG/VIAL (PROTONIX) IVP SCH ×2 (09:20→21:48)
[2016-09-27] MEDS: CLOTRIMAZOLE/BETAMET DIPROP 15 GM TUBE TP SCH ×2 (09:20→21:53)
[2016-09-27] MEDS ORDERED: COMMUNICATION ORDER XX ONE (10:00)
[2016-09-27] MEDS ORDERED: metroNIDAZOLE 500 MG TABLET GT SCH (10:04)
--- NOTE | 2016-09-27 10:15 | NUR ---
NOTE DR JOHNSON ON THE FLOOR. INFORMED THAT CASE MANAGEMENT STILL LOOKING FOR A BED IN SNF - ISOLATION ROOM. PT RESTING AND DENIES ANY NEEDS AT THIS TIME. CALL LIGHT WITHIN REACH.
[2016-09-27] MEDS: cefTRIAXone 1 GM in D5W 50 ML IV SCH ×2 (11:00→11:48)
--- NOTE | 2016-09-27 11:37 | NUR ---
DISCHARGE PLANNING Called and spoke with Delmy in admitting at [facility] facility still has no ISO bed available for patient discharge today. Delmy stated facility has discharges later today and may have bed available tonight, if not tonight then tomorrow. DCP will continue to follow up. Note will be left for weekend CM to follow up in AM.
--- NOTE | 2016-09-27 11:55 | NUR ---
NOTE DR JOHNSON WAS CALLED AND NOTIFIED THAT PT PULLING/TUGGING AT IV LINES, ROCEPHIN AND FLAGYL IVPB ARE DC'D AND FLAGYL PO VIA GT TO BE STARTED. PT DOES NOT LIKE TO BE TURNED OR HAVE ANY CARE AT THIS TIME. VERBALLY AND USING BODY LANGUAGE STATES SHE DOES NOT WANT TO BE DISTURBED OR TOUCHED. CALL LIGHT WITHIN REACH.
[2016-09-27 12:30] VITALS: BP_SYST 108
--- NOTE | 2016-09-27 14:30 | NUR ---
NOTE PT'S SON KANCHAN CAME TO FLOOR AND UPDATE ON HIS MOTHER (PT) STATUS GIVEN. QUESTIONS/CONCERNS WERE ANSWERED AT THIS TIME. PT RESTING IN BED, RESTLESSLY MOVING/TURNING IN BED AT THIS TIME. NO NEEDS NOTED. PT UNDER CLOSE OBSERVATION, PT NEXT TO NURSES' STATION.
[2016-09-27 16:11] VITALS: BP_SYST 114
--- NOTE | 2016-09-27 17:00 | NUR ---
NOTE PT RESTING IN BED - PT TURNS HERSELF AND MOVES IN BED INDEPENDENTLY. NO SOB/RESP DISTRESS OR PAIN/DISCOMFORT NOTED AT THIS TIME. LEFT HAND IV INTACT AND PATENT AT THIS TIME. GT FEEDINGS INFUSING WELL. NO NEEDS NOTED. CALL LIGHT WITHIN REACH.
--- NOTE | 2016-09-27 18:20 | NUR ---
NOTE PT RESTING IN BED DROWSY AT THIS TIME. IV IN LEFT HAND INTACT AND PATENT AND WRAPPED IN KERLIX WRAP. PT WAS CHECKED ON Q1' AND PRN FOR NEEDS AND CARE. NO SOB/RESP DISTRESS OR PAIN/DISCOMFORT WAS NOTED. GT FEEDINGS INFUSING WELL. NO NEEDS NOTED. PT WAS MAINTAINED WITH SAFETY PRECAUTIONS ALL SHIFT. CALL LIGHT WITHIN REACH.
[2016-09-27 19:40] VITALS: BP_SYST 114
--- NOTE | 2016-09-27 19:40 | NUR ---
Initial note Pt. received aaox1, drowsy at this time. IV access noted to left hand #22, intact and patent, wrapped with kerlix as pt. attempts to pull out IV. no s/s of sob or distress at this time. VSS. no facial grimacing for pain. G tube feeding is infusing well as ordered. Pt will be maintained in isolation precautions this shift. pt. placed close to nursing station for close observation. will continue to monitor for changes. safety and fall precautions in place, call light in reach. bed alarm on.
[2016-09-27] MEDS: LACTOBACILLUS RHAMNOSUS GG 1 CAP CAPSULE GT SCH (21:48)
--- NOTE | 2016-09-27 22:03 | NUR ---
ROUNDS PT REMOVED IV ACCESS. NEW ACCESS GAINED ON LEFT HAND, #24 GAUGE. WRAPPED WITH KERLIX WRAP TO PREVENT PT. FROM REMOVING AGAIN. FLUSHES WELL WITH GOOD BLOOD RETURN, NO INFILTRATION NOTED. PT. LEFT IN A COMFORTABLE POSITION IN BED. G TUBE FEEDING INFUSING WELL. WILL CONTINUE TO MONITOR CLOSELY. SAFETY, FALL AND CONTACT PRECAUTIONS IN PLACE. CALL LIGHT IN REACH, BED ALARM ON.
--- NOTE | 2016-09-28 | NUR ---
ROUNDS PT. RESTING IN BED WITH EYES CLOSED. NO S/S OF SOB OR DISTRESS NOTED. NO FACIAL GRIMACING FOR PAIN. WILL CONTINUE TO MONITOR CLOSELY. G TUBE FEEDING INFUSING WELL, FLUSHED WITH 50 CC FREE WATER, NO RESISTANCE NOTED. SAFETY AND FALL PRECAUTIONS IN PLACE, CALL LIGHT IN REACH. BED ALARM ON.
--- NOTE | 2016-09-28 02:07 | NUR ---
ROUNDS PT. MOVING AROUND IN BED. REPOSITIONED AND PLACED UP RIGHT TO PREVENT ASPIRATION. G TUBE FEEDING CONTINUES TO INFUSE WELL. NO S/S OF SOB OR DISTRESS. NO SIGNS OF ITCHING AT THIS TIME. IV ACCESS REMAINS INTACT. PT. VISIBLE FROM THE NURSES STATION. WILL CONTINUE TO MONITOR FOR CHANGES. SAFETY AND FALL PRECAUTIONS IN PLACE, CALL LIGHT IN REACH. ALARM ON BED.
[2016-09-28 04:00] VITALS: BP_SYST 102
--- NOTE | 2016-09-28 04:27 | NUR ---
ROUNDS PT. HAD A BM, SHE WAS CHANGED, PROVIDED WITH NEW LINENS AND REPOSITIONED FOR COMFORT. G TUBE FEEDING RESTARTED ONCE PATIENT WAS PLACED IN UPRIGHT POSITION. INFUSING WELL. IV ACCESS REMAINS INTACT. PT. IS CLOSELY BEING MONITORED, AND CAN BE SEEN FROM THE NURSING STATION. SAFETY AND FALL PRECAUTIONS IN PLACE, CALL LIGHT IN REACH.
[2016-09-28] MEDS: metroNIDAZOLE 500 MG TABLET PO SCH ×3 (05:40→22:04)
--- NOTE | 2016-09-28 06:33 | NUR ---
CLOSING NOTES PT. RESTING IN BED QUIETLY AT THIS TIME. NO S/S OF SOB OR DISTRESS NOTED. NO FACIAL GRIMACING FOR PAIN. G TUBE FLUSHED WITH 50 CC FREE WATER, NO RESISTANCE NOTED. FEEDING CONTINUES TO INFUSE WELL. PT. REPOSITIONED FOR COMFORT AND SUPPORTED WELL WITH PILLOWS. HOB IN UPRIGHT POSITION TO PREVENT ASPIRATION. IV ACCESS REMAINS PATENT AND INTACT. ALL NECESSARY NEEDS WERE MET THROUGHOUT THE SHIFT. SAFETY, FALL, AND ENHANCED CONTACT ISOLATION PRECAUTIONS WERE MAINTAINED. WILL ENDORSE CARE TO AM NURSE. CALL LIGHT IN REACH, BED ALARM ON. PT. REMAINS VISIBLE FROM THE NURSES STATION.
[2016-09-28 08:00] VITALS: BP_SYST 118
--- NOTE | 2016-09-28 08:00 | NUR ---
NOTE PT CURLED UP IN BED WILL NOT STRAIGHTEN HERSELF OUT AT THIS TIME. PT'S VS WERE TAKEN. NO SOB/RESP DISTRESS OR PAIN/DISCOMFORT NOTED AT THIS TIME. IV IN LEFT HAND INTACT AND WRAPPED IN KERLIX WRAP. GT FEEDINGS INFUSING WELL AT THIS TIME. PT NEXT TO NURSES' STATION FOR CLOSE OBSERVATION. CALL LIGHT WITHIN REACH.
[2016-09-28] MEDS: LACTOBACILLUS RHAMNOSUS GG 1 CAP CAPSULE GT SCH ×2 (08:41→22:03)
[2016-09-28] MEDS: PANTOPRAZOLE SODIUM 40 MG/VIAL (PROTONIX) IVP SCH ×2 (08:41→22:04)
[2016-09-28] MEDS: CLOTRIMAZOLE/BETAMET DIPROP 15 GM TUBE TP SCH ×2 (08:42→21:00)
[2016-09-28] MEDS: MUPIROCIN 2% TOPICAL OINTMENT 22 GM TP SCH ×2 (08:42→21:00)
--- NOTE | 2016-09-28 10:00 | NUR ---
NOTE PT WAS GIVEN CHG BATH AND OTHER HYGIENE CARE. LINENS AND GOWN WERE CHANGED. PT WAS GIVEN HER MEDICATIONS WITH RESISTANCE FROM PT (GT MEDICATIONS AND IVP). PT TURNS HERSELF FROM TIME TO TIME IN BED. NO NEEDS NOTED. CALL LIGHT WITHIN REACH.
--- NOTE | 2016-09-28 11:20 | NUR ---
DC PLANNING: CALLED [facility], STILL NO AVAILABLE ISO BED TODAY, BUT SHE IS HOPING TOMORROW WHEN ONE OF THEIR PT WILL BE OFF ISOLATION, TO F/U.
--- NOTE | 2016-09-28 12:00 | NUR ---
NOTE PT'S GRAND-DAUGHTER CAME TO SEE PT AND UPDATE ON PT'S STATUS WAS GIVEN. QUESTIONS/CONCERNS WERE ANSWERED AT THIS TIME WELL. PT SLEEPING THROUGHOUT INTERACTION. NO NEEDS NOTED AT THIS TIME.
[2016-09-28 12:24] VITALS: BP_SYST 120
--- NOTE | 2016-09-28 15:00 | NUR ---
NOTE PT RESTING IN BED SIDE WAYS, PT WANTS TO BE LEFT ALONE IN THIS POSITION IT SEEMS TO BE COMFORTABLE FOR HER RESTING. PT SEEMS TO HAVE NO NEEDS, PT STABLE AT THIS TIME. GT FEEDINGS INFUSING WELL AT THIS TIME. CALL LIGHT WITHIN REACH.
[2016-09-28 16:34] VITALS: BP_SYST 123
--- NOTE | 2016-09-28 18:10 | NUR ---
NOTE PT RESTING IN BED. NO SOB/RESP DISTRESS OR PAIN/DISCOMFORT NOTED AT THIS TIME. GT FEEDINGS INFUSING WELL AT THIS TIME. PT WAS CHECKED ON Q1' AND PRN FOR NEEDS AND CARE. PT WAS MAINTAINED WITH SAFETY PRECAUTIONS ALL SHIFT. CALL LIGHT WITHIN REACH. PT TURNS AND MOVES ALL OVER THE BED. CALL LIGHT WITHIN REACH.
[2016-09-28 21:00] VITALS: BP_SYST 123
--- NOTE | 2016-09-28 21:00 | NUR ---
PM ASSESSMENT: RECEIVED REPORT FROM ANDREW LUNDY AT 1925HR. PATIENT in bed awake ,non verbal this time ,nepali speaking ,communicates by l sign languages,scratching arms chest and legs.saline lock wrapped with gauge. FIBERSOURCE feeding via g tube INFUSING WELL ,NO RESIDUAL.DRESSING ON G TUBE SITE FALLING OFF. VITAL SIGNS TAKEN .STABLE. PLACED CALL LIGHT WITHIN REACH. INCONTINENT OF URINE AND STOOL. WILL MONITOR CLOSELY.
--- NOTE | 2016-09-28 21:40 | NUR ---
HYGIENE: DENISE CARE DONE BY RAYMUNDO CHILDS DUE TO INCONTINENT OF STOOL AND URINE.
--- NOTE | 2016-09-28 22:30 | NUR ---
OUTSIDE INDUSTRIAL SALES REPRESENTATIVE: DUE MEDS GIVEN VIA G TUBE. WATER FLUSH GIVEN EASILY. COMMUNICATES BY SIGNS.
--- NOTE | 2016-09-28 23:30 | NUR ---
IV OUT: IV WAS WRAPPED WELL AT 2100 HR. SEEN IV OUT THIS TIME. NO BLEEDING .VITAL SIGNS TAKEN ,STABLE.
[2016-09-29 00:06] VITALS: BP_SYST 92
--- NOTE | 2016-09-29 01:15 | NUR ---
TUBE FEEDING/DRESSING CHANGE: FEEDING BAG AND TUBING CHANGED. NO RESIDUAL. SITE CLEANSED WITH NS. DRESSING CHANGED AND SECURED WELL.
--- NOTE | 2016-09-29 03:00 | NUR ---
IV INSERTION: NEW IV LINE INSERTED BY ANDREW ALANIZ AND ANDREW ARMENDARIZ TO LEFT FOREARM USING # 22 GAUGE WITH BLOOD RETURN X 1 ATTEMPT. NO ACUTE DISTRESS.
--- NOTE | 2016-09-29 04:20 | NUR ---
ROUNDS: VITAL SIGNS TAKEN BY RAYMUNDO CHILDS. ALL WITHIN NORMAL LIMITS. TOLERATING FEEDING.
[2016-09-29 04:23] VITALS: BP_SYST 120
--- NOTE | 2016-09-29 05:30 | NUR ---
DUE MED VIA G TUBE GIVEN WITHOUT PROBLEM. REINFORCE IV DRESSING. INCONTINENT OF URINE. DENISE CARE DONE AFTER. NO ACUTE DISTRESS. ALL NEEDS WERE ATTENDED.
[2016-09-29] MEDS: metroNIDAZOLE 500 MG TABLET PO SCH ×3 (05:31→21:05)
--- NOTE | 2016-09-29 07:00 | NUR ---
CLOSING: TOLERATING TUBE FEEDINGS.NO BM THIS AM. VITAL WERE STABLE. CONTACT ISOLATION IN PROGRESS. NEEDS WERE MET.
[2016-09-29 08:00] VITALS: BP_SYST 118; BP_SYST 95
--- NOTE | 2016-09-29 08:00 | NUR ---
OPENING NOTE: RECEIVED REPORT FROM NIGHT NURSE. PATIENT IS RESTING COMFORTABLY IN BED. NO S/S OF DISTRESS OR SOB. PATIENT IS AWAKE BUT CONFUSED. VITAL SIGNS WNL, ASSESSMENT COMPLETE. IV IS PATENT. PATIENT IN CONTACT ISOLATION. CALL LIGHT IN REACH, BED IN LOWEST POSITION, AND WILL CONTINUE TO MONITOR.
[2016-09-29] MEDS: PANTOPRAZOLE SODIUM 40 MG/VIAL (PROTONIX) IVP SCH ×2 (08:55→21:04)
[2016-09-29] MEDS: LACTOBACILLUS RHAMNOSUS GG 1 CAP CAPSULE GT SCH ×2 (08:55→21:05)
[2016-09-29] MEDS: MUPIROCIN 2% TOPICAL OINTMENT 22 GM TP SCH ×2 (08:56→21:07)
[2016-09-29] MEDS: CLOTRIMAZOLE/BETAMET DIPROP 15 GM TUBE TP SCH ×2 (08:57→21:00)
--- NOTE | 2016-09-29 10:00 | NUR ---
NOTE: PATIENT IS RESTING COMFORTABLY IN BED. NO S/S OF DISTRESS OR SOB. PATIENT IS AWAKE BUT CONFUSED. CALL LIGHT IN REACH, BED IN LOWEST POSITION, AND WILL CONTINUE TO MONITOR.
--- NOTE | 2016-09-29 12:00 | NUR ---
NOTE: PATIENT IS RESTING COMFORTABLY IN BED. NO S/S OF DISTRESS OR SOB. PATIENT IS SLEEPING. CALL LIGHT IN REACH, BED IN LOWEST POSITION, AND WILL CONTINUE TO MONITOR.
[2016-09-29 12:45] VITALS: BP_SYST 100
--- NOTE | 2016-09-29 15:16 | NUR ---
DC PLANNING: CALLED [facility], STILL NO AVAILABLE ISO BED TODAY. TO FOLLOW UP TOMORROW.
--- NOTE | 2016-09-29 16:00 | NUR ---
NOTE: PATIENT IS RESTING COMFORTABLY IN BED. NO S/S OF DISTRESS OR SOB. PATIENT IS SLEEPING. NO SIGNS OF RESTLESS. CALL LIGHT IN REACH, BED IN LOWEST POSITION, AND WILL CONTINUE TO MONITOR.
[2016-09-29 16:10] VITALS: BP_SYST 126
--- NOTE | 2016-09-29 18:11 | NUR ---
CLOSING NOTE: PATIENT IS RESTING COMFORTABLY IN BED. NO S/S OF DISTRESS OR SOB. PATIENT IS AWAKE BUT CONFUSED. CALL LIGHT IN REACH, BED IN LOWEST POSITION, AND WILL GIVE REPORT TO NIGHT NURSE.
--- NOTE | 2016-09-29 19:20 | NUR ---
OPENING NOTES REPORT GIVEN BY DAYSHIFT NURSE. PATIENT IS AWAKE BUT CONFUSED WITH GARBLED SPEECH. NO S/S OF ACUTE DISTRESS NOTED. BREATHING IS EVEN AND UNLABORED. PATIENT'S ROOM IS IN VIEW OF NURSES STATION. BED IN LOWEST POSITION WITH CALL LIGHT WITHIN REACH. WILL CONTINUE TO MONITOR FREQUENTLY.
[2016-09-29 20:00] VITALS: BP_SYST 124
[2016-09-29] MEDS: DIPHENHYDRAMINE INJ 50 MG/ML VIAL IVP PRN (21:05)
--- NOTE | 2016-09-29 21:20 | NUR ---
ROUNDS PATIENT IS LYING IN BED. BREATHING IS EVEN AND UNLABORED. IV IS PATENT, TUBE FEEDING INFUSING PROPERLY. PATIENT ANSWERS TO NAME, BUT HER SPEECH IS GARBLED AND SHE IS CONFUSED. SHE IS A/O X1. NO ACUTE S/S OF DISTRESS NOTED. BED IN LOWEST POSITION, BED ALARM SET, CALL LIGHT WITHIN REACH. WILL CONTINUE TO MONITOR FREQUENTLY.
--- NOTE | 2016-09-29 23:20 | NUR ---
ROUNDS PATIENT IS SLEEPING COMFORTABLY WITH VISIBLE RISE AND FALL OF CHEST NOTED. TUBE FEEDING INFUSING. NO S/S OF ACUTE DISTRESS NOTED. FALL PRECAUTIONS IN PLACE, CALL LIGHT WITHIN REACH. WILL CONTINUE TO MONITOR FREQUENTLY.
[2016-09-30 01:04] VITALS: BP_SYST 112
--- NOTE | 2016-09-30 03:30 | NUR ---
ROUNDS PATIENT IS SLEEPING, VISIBLE RISE AND FALL OF CHEST NOTED. NEW BAG OF FIBERSOURCE FOR TUBE FEEDING WAS HUNG AND RUNNING. NO S/S OF ACUTE DISTRESS NOTED. FALL PRECAUTIONS IN PLACE, CALL LIGHT WITHIN REACH. WILL CONTINUE TO MONITOR FREQUENTLY.
[2016-09-30 04:13] VITALS: BP_SYST 119
[2016-09-30] MEDS: metroNIDAZOLE 500 MG TABLET PO SCH ×2 (05:17→14:47)
[2016-09-30] MEDS: DIPHENHYDRAMINE INJ 50 MG/ML VIAL IVP PRN ×3 (05:17→09:43)
--- NOTE | 2016-09-30 05:25 | NUR ---
FREE WATER FLUSH FREE WATER FLUSH OF 50ML FOR G-TUBE GIVEN. PATIENT IS SLEEPING, VISIBLE RISE AND FALL OF CHEST NOTED. NO S/S OF DISTRESS. BED IN LOWEST POSITION, BED ALARM ON, CALL LIGHT WITHIN REACH.
--- NOTE | 2016-09-30 06:19 | NUR ---
CLOSING NOTES PATIENT IS SLEEPING IN SEMI-HENDRIX'S POSITION, WITH VISIBLE RISE AND FALL OF CHEST. NO ACUTE S/S/ OF DISTRESS NOTED. TUBE FEEDING RUNNING, G-TUBE DRESSING CLEAN, DRY, AND INTACT. BED IN LOWEST POSITION, BED ALARM ON, CALL LIGHT WITHIN REACH. WILL ENDORSE CARE TO DAY SHIFT NURSE.
--- NOTE | 2016-09-30 06:21 | NUR ---
CLOSING NOTES PATIENT IS RESTING IN SEMI-HENDRIX'S POSITION, EYES CLOSED. IV FLUIDS INFUSING, SCD'S IN PLACE. BED IN LOWEST POSITION, BED ALARM ON, CALL LIGHT WITHIN REACH. WILL ENDORSE CARE TO DAY SHIFT NURSE.
[2016-09-30 08:00] VITALS: BP_SYST 118
--- NOTE | 2016-09-30 08:00 | NUR ---
OPENING NOTE PT IN BED, CURLED UP WITH HER KNEES TO HER CHEST. PT SPEAKS HEBREW BETTER THAN FAROESE AND IS ALERT AND ORIENTED X2, SHE WAS ABLE TO TELL ME HER NAME AND , BUT COULD NOT TELL ME LOCATION, DAY OR MONTH. VS STABLE BUT SHE IS SCRATCHING AT HER SKIN, SO i WILL ADMINISTER THE PRN BENADRYL ALONG WITH HER MORNING MEDS. IV IS PATENT WITH NO SIGNS OF INFILTRATION, YET SHE REACTS TO A SALINE FLUSH THOUGH SHE IS PAIN. WHEN ASKED, SHE SAYS SHE IS NOT IN PAIN AND I AM UNABLE TO DETERMINE THE REASON FOR HER REACTION. I PLAN TO PROCEED WITH CAUTION WHEN ADMINISTERING ANY IV MEDS.
[2016-09-30] MEDS: CLOTRIMAZOLE/BETAMET DIPROP 15 GM TUBE TP SCH (09:00)
--- NOTE | 2016-09-30 09:00 | NUR ---
HELD LIDOCAINE/PRILOCAINE LOTION, ELIMITE IS SCHEDULED TO BE ADMINISTERED
[2016-09-30] MEDS: PANTOPRAZOLE SODIUM 40 MG/VIAL (PROTONIX) IVP SCH (09:42)
[2016-09-30] MEDS: LACTOBACILLUS RHAMNOSUS GG 1 CAP CAPSULE GT SCH (09:43)
[2016-09-30] MEDS: MUPIROCIN 2% TOPICAL OINTMENT 22 GM TP SCH (09:46)
--- NOTE | 2016-09-30 09:54 | NUR ---
DISCHARGE PLANNING Called [facility] [phone] spoke with Anjali who stated admitting will be in at 10am. DCP will call back Addendum: 09/30/16 at 1052 by Aida Kirk DP Spoke with Delmy at [facility] patient assigned to room 101A RN to report [phone] bed available anytime. ANDREW Wells made aware and return call back with time to arrange ambulance transport. Updated transportation packet and placed in nurses station. Addendum: 09/30/16 at 1147 by Aida Kirk DP Spoke with patient hien Oliver [phone] who is agreeable with patient discharge back to [facility] today. Called [facility] [phone] spoke with Trent arranged BLS transport pick up attendant 3pm.
--- NOTE | 2016-09-30 10:00 | NUR ---
ROUNDS PT IS IN BED, SUPINE WITH HER KNEES UP. SHE APPEARS LESS AGITATED THAN BEFORE BUT STILL SEEMS ANXIOUS AND DOES NOT LIKE TO BE TOUCHED. BED IN LOWEST POSITION AND BED ALARM SET
[2016-09-30] MEDS ORDERED: PERMETHRIN 60 GM TOPICAL CREAM (ELIMITE) TP ONE ×2 (10:15→11:45)
[2016-09-30] MEDS ORDERED: IVERMECTIN 3 MG TABLET PO ONE (11:45)
[2016-09-30 11:49] VITALS: BP_SYST 99
--- NOTE | 2016-09-30 12:00 | NUR ---
ROUNDS PT IN BED, SLIGHTLY AGITATED BUT NOT COMPLAINING OF PAIN. EXPLAINED D/C PLAN TO PT
--- NOTE | 2016-09-30 14:00 | NUR ---
ROUNDS PT HAS RECEIVED BED BATH, TREATMENT CREAM, AND IS READY FOR HER 1500 DISCHARGE
[2016-09-30 14:54] VITALS: BP_SYST 118
--- NOTE | 2016-09-30 15:15 | NUR ---
DISCHARGE NOTE Patient given medication reconciliation form and D/C instructions. Exit Care provided. discussed with patient the results and treatment provided. Report provided to [facility]. Patient in stable condition, ID band removed. IV catheter removed, intact and dressing applied, no active bleeding. All belongings sent with patient.
== END 2016-09-30 17:35 | DRG 372 ==
LOC: SED 04:42 → STU 07:06 → SMU 09-20 12:37
PROVIDERS: ADMIT Family Medicine; ATTEND Family Medicine
PROC: 0DB68ZX Excision of Stomach, Via Natural or Artificial Opening Endoscopic, Diagnostic (ICD-10-PCS; principal; 2016-09-20 09:00)
PROC: 0HBQXZX Excision of Finger Nail, External Approach, Diagnostic (ICD-10-PCS; 2016-09-25)
DX: A04.7 Enterocolitis due to Clostridium difficile (principal); N39.0 Urinary tract infection, site not specified; E44.1 Mild protein-calorie malnutrition; Z68.1 Body mass index [BMI] 19.9 or less, adult; K92.2 Gastrointestinal hemorrhage, unspecified; R13.10 Dysphagia, unspecified; F02.80 Dementia in other diseases classified elsewhere, unspecified severity, without behavioral disturbance, psychotic disturbance, mood disturbance, and anxiety; E03.9 Hypothyroidism, unspecified; I10 Essential (primary) hypertension; D64.9 Anemia, unspecified; L30.9 Dermatitis, unspecified; R53.81 Other malaise; B86 Scabies; D72.1 Eosinophilia; G30.9 Alzheimer's disease, unspecified; K21.9 Gastro-esophageal reflux disease without esophagitis; K29.70 Gastritis, unspecified, without bleeding; K44.9 Diaphragmatic hernia without obstruction or gangrene; Z16.24 Resistance to multiple antibiotics; Z22.322 Carrier or suspected carrier of Methicillin resistant Staphylococcus aureus; Z87.11 Personal history of peptic ulcer disease; Z93.1 Gastrostomy status; Z78.9 Other specified health status
CPT/HCPCS: 36415; 43239; 71010; 73140-TC; 80048; 80053; 81000-TC; 82272; 82962; 83605; 84484; 85018-TC; 85025; 85610-TC; 85730-TC; 86886; 86900; 86901; 87040-TC; 87081; 87086; 87186-TC; 87210-TC; 87230-TC; 88304; 88305; 88312; 88313; 93005; 96374; 96375; 99285; C9113; J0696; J1200; J2175; J2250; J2405; J7030; J7060